=== PATIENT | female | born 1985 | race American Indian/Alaskan Native ===

== ENCOUNTER 2017-01-16 09:16 | Outpatient (CLI) | payer OTHER ==
[2017-01-16] MEDS ORDERED: PROVENTIL IH ONE (09:32)
== END 2017-01-16 09:17 | disposition home or self-care (01) ==
LOC: PF 09:16
PROVIDERS: ATTEND Internal Medicine
DX: J96.11 Chronic respiratory failure with hypoxia (principal); J45.909 Unspecified asthma, uncomplicated
CPT/HCPCS: 94060; 94640; 94729